=== PATIENT | female | born 1970 | race Caucasian/White ===

== ENCOUNTER 2021-08-01 14:23 | Emergency (ER) | payer MEDICAID ==
[~2021-08-01] VITALS: Ht 177.8 cm; Wt 104.0 kg
[2021-08-01 14:29] VITALS: BP 135/83
[2021-08-01] MEDS ORDERED: HYDR-3972 PO (15:51)
[2021-08-01] MEDS ORDERED: AMOX-580 PO (15:51)
== END 2021-08-01 16:09 | disposition home or self-care (01) ==
LOC: ER 14:26
DX: K02.9 Dental caries, unspecified (principal)
CPT/HCPCS: 99283